=== PATIENT | female | born 1945 | race Two or more races ===

== ENCOUNTER 2022-12-17 09:36 | Outpatient (CLI) | payer MEDICARE | END 2022-12-17 09:37 | disposition home or self-care (01) | LOC: BICMAMMO 09:36 | PROVIDERS: ATTEND Nurse Practitioner Family | DX: Z12.31 Encounter for screening mammogram for malignant neoplasm of breast (principal); Z13.820 Encounter for screening for osteoporosis; Z78.0 Asymptomatic menopausal state; M81.0 Age-related osteoporosis without current pathological fracture; M85.89 Other specified disorders of bone density and structure, multiple sites | CPT/HCPCS: 77063; 77067; 77080 ==

== ENCOUNTER 2023-06-02 12:00 | Outpatient (CLI) | payer MEDICARE | END 2023-06-02 12:01 | disposition home or self-care (01) | LOC: SCSMRI 12:00 | PROVIDERS: ATTEND Psychiatry & Neurology Neurology | DX: G40.909 Epilepsy, unspecified, not intractable, without status epilepticus (principal); I67.89 Other cerebrovascular disease | CPT/HCPCS: 70553 ==

== ENCOUNTER 2023-07-23 12:40 | Outpatient (CLI) | payer MEDICARE | END 2023-07-23 12:41 | disposition home or self-care (01) | PROVIDERS: ATTEND Psychiatry & Neurology Neurology | DX: R55 Syncope and collapse (principal) | CPT/HCPCS: 93225; 93226 ==

== ENCOUNTER 2023-07-24 13:01 | Outpatient (CLI) | payer MEDICARE | END 2023-07-24 13:02 | disposition home or self-care (01) | LOC: ULT 13:01 | PROVIDERS: ATTEND Psychiatry & Neurology Neurology | DX: R55 Syncope and collapse (principal); I08.1 Rheumatic disorders of both mitral and tricuspid valves | CPT/HCPCS: 93306 ==

== ENCOUNTER 2023-07-29 16:41 | Outpatient (CLI) | payer MEDICARE | END 2023-07-29 16:42 | disposition home or self-care (01) | LOC: ULT 16:41 | PROVIDERS: ATTEND Psychiatry & Neurology Neurology | DX: R55 Syncope and collapse (principal) | CPT/HCPCS: 93880 ==

== ENCOUNTER 2024-07-14 15:09 | Outpatient (CLI) | payer MEDICARE, BC | END 2024-07-14 15:10 | disposition home or self-care (01) | LOC: BICULT 15:09 | PROVIDERS: ATTEND Family Medicine | DX: M79.622 Pain in left upper arm (principal); R07.0 Pain in throat | CPT/HCPCS: 76536; 76999 ==

== ENCOUNTER 2024-09-03 09:02 | Outpatient (CLI) | payer MEDICARE, BC | END 2024-09-03 09:03 | disposition home or self-care (01) | LOC: BICCT 09:02 | PROVIDERS: ATTEND Nurse Practitioner Family | DX: R93.89 Abnormal findings on diagnostic imaging of other specified body structures (principal); K11.5 Sialolithiasis | CPT/HCPCS: 70492; 82565 ==

== ENCOUNTER 2025-07-25 09:13 | Outpatient (CLI) | payer MEDICARE, BC | END 2025-07-25 09:14 | disposition home or self-care (01) | LOC: BICMRI 09:13 | PROVIDERS: ATTEND Podiatrist Foot & Ankle Surgery | DX: M67.472 Ganglion, left ankle and foot (principal); M19.072 Primary osteoarthritis, left ankle and foot; Z87.81 Personal history of (healed) traumatic fracture; M20.12 Hallux valgus (acquired), left foot ==